=== PATIENT | female | born 1980 | race Caucasian/White ===

== ENCOUNTER → 2023-11-13 | Outpatient (CLI) | payer BC, SELFPAY ==
[2023-11-13 12:11] LABS: Absolute Lymphocyte Count 1.35 X10^3/uL (0.83-4.51); Absolute Neutrophil Count 3.2 X10^3/uL (2.0-7.7); Basophil# 0.04 X10^3/uL; Basophil% 0.8 % (0-1); Eosinophil# 0.06 X10^3/uL; Eosinophils% 1.2 % (0-5); Hematocrit 35.5 % (37-47); Hemoglobin 10.9 g/dL (12.0-15.0); Lymphocyte # 1.35 X10^3/ul (0.83-4.51); Lymphocyte % 26.9 % (19-41); Mean Corp Hgb Conc 30.7 g/dL (32-36); Mean Corpuscular Hgb 22.3 pg (27.0-32.0); Mean Corpuscular Volume 72.7 fL (81-99); Mean Platelet Vol. 8.8 fl (6.2-12.0); Monocyte# 0.38 X10^3/uL; Monocyte% 7.6 % (0-10); NRBC Flagged by Analyzer 0 % (0-5); Neutrophil # 3.18 X10^3/uL (2.7-7.7); Neutrophil % 63.3 % (47-70); Platelet Count 346 K/mm3 (150-450); RBC Distribution Width CV 18.7 % (11.6-14.6); RBC Distribution Width SD 48.4 fl (35.1-43.9); Red Blood Count 4.88 M/mm3 (4.2-5.4)
[2023-11-13 12:32] LABS: AST(SGOT) 11 U/L (15-37); Alanine Aminotransfer ALT/SGPT 15 U/L (13-56); Albumin, Serum 3.8 g/dL (3.2-5.0); Alkaline Phosphatase 43 U/L (45-117); Anion Gap 7 (5-15); BUN 11 mg/dL (7-18); BUN/Creat Ratio 15.1 RATIO (10-20); Calcium,Total 9.2 mg/dL (8.5-10.1); Chloride 105 mmol/L (98-107); Cholesterol 224 mg/dL (200); Creatinine, Serum 0.73 mg/dL (0.55-1.02); EST Glomerular Filtration Rate 92 mL/min (>60); Est Glom Filt Rate - Afr Amer 111 mL/min (>60); Globulin 3.7 g/dL (2.2-4.2); Glucose 95 mg/dL (74-106); High Density Lipoprotein 82 mg/dL; Potassium 3.9 mmol/L (3.5-5.1); Protein, Total 7.5 g/dL (6.4-8.2); Sodium Level 135 mmol/L (136-145); Triglycerides 100 mg/dL; Very Low Density Lipoprotein 20 mg/dL (5-40)
== END | disposition home or self-care (01) ==
LOC: MTLAB 10:39
PROVIDERS: PCP Nurse Practitioner Family; Referring Provider Nurse Practitioner Family; Visit Provider Nurse Practitioner Family
DX: Z01.818 Encounter for other preprocedural examination (principal)
CPT/HCPCS: 36415; 80053; 80061; 85025

== ENCOUNTER 2023-11-30 06:00 | Day surgery (SDC) | payer SELFPAY ==
[2023-11-30] VITALS (11 sets, daily range): BP systolic 86–115; BP diastolic 52–71; PULSE 74–106; RESP 16–18; TEMP 36.3–37.6; O2SAT 95–100; BMI 27.1
[2023-11-30 06:19] LABS: Internal QC Validated? YES +Cl - CLEAR BKGD; Pregnancy, Urine Negative Negative
--- NOTE | 2023-11-30 07:11 | PCM.PRE.AN2 ---
ASA Classification* ASA Classification ASA Classification: 2 Assessment & Plan Anesthesia* Anesthesia Assessment Anesthesia Assessment: Discussed sedation and/or anesthesia options, risks, benefits, and alternatives with patient/parents/legal guardian/POA. Questions invited. The patient/parents/legal guardian/POA seems to understand and agrees to proceed with anesthesia plan. Reviewed the physical assessment, medical history, allergy history and patient home medications list prior to surgery/procedure/anesthetic and documented any changes. Performed airway and anesthesia risk assessments. Anesthesia Type Anesthesia Type: General (see written pre anesthesia record for full assessment) Anesthesia Focused Assessment* Temperature: 98.8 F Pulse Rate: 74 Blood Pressure: 115/71 Respiratory Rate: 16 Pulse Ox: 100 Airway Assessment Mouth opens: >3 cm Mallampati Score: II Focused Labs Anesthesia Preop lab: CBC WBC 5.0 K/mm3 (4.4-11.0) 11/13/23 10:47 RBC 4.88 M/mm3 (4.2-5.4) 11/13/23 10:47 Hgb 10.9 g/dL (12.0-15.0) L 11/13/23 10:47 Hct 35.5 % (37-47) L 11/13/23 10:47 Plt Count 346 K/mm3 (150-450) 11/13/23 10:47 CHEMISTRY Potassium 3.9 mmol/L (3.5-5.1) 11/13/23 10:47 Sodium 135 mmol/L (136-145) L 11/13/23 10:47 BUN 11 mg/dL (7-18) 11/13/23 10:47 Creatinine 0.73 mg/dL (0.55-1.02) 11/13/23 10:47 Glucose 95 mg/dL (74-106) 11/13/23 10:47 COAG Urine Test Negative Negative 11/30/23 06:10 Pre-Assessment Diagnosis/Proposed Procedure Planned Operative Procedure(s): BILAT BREAST REDUCTION Anesthesia History Anesthesia History - senior stock plan administrator: Anesthesia History - senior stock plan administrator Hx Hospitalization No 11/16/23 10:09 Any Problems With Anesthesia Yes: N,V 11/16/23 10:09 Cholinesterase deficiency No 11/16/23 10:09 You/Your Family Experience No 11/16/23 10:09 fever (hyperthermia) with Relationship Recent Exposure to Contagious No 11/30/23 06:30 Disease Does patient have nerve No 11/16/23 10:09 stimulator Patient instructed to have device shut off --Does patient have Pacemaker No 11/30/23 06:30 or ICD? When Was Last Pacemaker Check QUESTION #4 FULL TEXT: You/Your Family Experience fever (hyperthermia) with Anesthesia Last Oral Intake Last Oral intake: Last Oral Intake NPO since 19:30 11/30/23 06:30 Meds taken in AM with sips of water? Meds patient instructed to take am of surgery PONV PONV - senior stock plan administrator: PONV - senior stock plan administrator Female Yes 11/16/23 10:09 HX of Motion Sickness Yes 11/16/23 10:09 HX of N/V After Surgery Yes 11/16/23 10:09 Non-Smoker Yes 11/16/23 10:09 Duration of Surgery greater Yes 11/16/23 10:09 than 60 minutes Number of Risk Factors 5 11/16/23 10:09 PONV Score Severe Risk 11/16/23 10:09 Height & Weight Height & Weight: Anesthesia: Height & Weight Height 5 ft 11/30/23 06:30 Weight: 63 kg 11/30/23 06:30 Body Mass Index (BMI) 27.1 11/30/23 06:30 Respiratory Assessment Respiratory Assessment - senior stock plan administrator: Respiratory Tract Infection Hx - senior stock plan administrator Hx Respiratory Tract Infection No 11/16/23 10:09 STOP Sleep Apnea STOP Sleep Apnea - senior stock plan administrator: STOP Sleep Apnea - senior stock plan administrator Hx Hypertension No 11/16/23 10:09 Hx Sleep Apnea No 11/16/23 10:09 CPAP BIPAP Do you snore loudly (louder No 11/16/23 10:09 than talking or can be heard Do you often feel tired/ No 11/16/23 10:09 fatigued/ sleepy during daytime? Has anyone observed you stop No 11/16/23 10:09 breathing during sleep? STOP Results Negative 11/16/23 10:09 QUESTION #5 FULL TEXT : Do you snore loudly (louder than talking or can be heard through closed doors)? Tobacco Use History Tobacco Use History - senior stock plan administrator: Tobacco Use History - senior stock plan administrator Tobacco Use Smoking Status Never smoker 11/16/23 10:09 Hx Tobacco Use No 11/16/23 10:09 Years Smoking Packs Smoked per Day Smoking Cessation Date was within the last 15 years Hx Smoking Cessation Date Hx Smoking Cessation Counseling Hematologic Medial History Hematologic Hx - senior stock plan administrator: Hematologic Medical Hx - heating mechanic Hx of Blood Transfusion No 11/16/23 10:09 Hx of Transfusion in last 3 No 11/16/23 10:09 Months Date of Last Transfusion (if within last 3 months) Ever experience any problems No 11/16/23 10:09 with transfusion(s)? Specify any problems Hx of Preganancy in last 3 No 11/16/23 10:09 Months Nurse Filling Out Transfusion DSCHRIBER 11/16/23 10:09 & Questions: Date: 11/16/23 11/16/23 10:09 Time: 10:10 11/16/23 10:09 Patient unable to answer at this time (ie. confused, unrespo /Reproduction History /Reproductive History - senior stock plan administrator: /Reproductive Hx- senior stock plan administrator Hx Now No 11/16/23 10:09 Gestational Age (in weeks): EDC: Hx Hx Para Hx Section SAB No 11/16/23 10:09 Active Medications Active Medications: Current Medications Generic Name Dose Route Start Last Admin Trade Name Freq PRN Reason Stop Dose Admin Cefazolin Sodium 2 gm/ Sodium 110 mls @ 150 mls/hr 11/30/23 07:30 Chloride IV 11/30/23 08:13 PREOP ONE [facility] Medical History Low iron Back pain Non-smoker Home Medications ?Medication ?Instructions ?Recorded ?Last Taken ?Type d-mannose 500 mg capsule 500 mg PO DAILY 11/16/23 11/29/23 History dihydroberberine 200 mg capsule 200 mg PO DAILY 11/16/23 11/29/23 History (Berberine ES-5) multivitamin-folic acid 400 2 tab PO DAILY 11/16/23 11/29/23 History mcg-biotin 2,000 mcg tablet (Qptl-Nqab-Ojwff (datqkonx-oetfw-mhjlak)) cephalexin 500 mg capsule 500 mg PO BID #14 caps 11/20/23 11/29/23 20:00 Rx Allergy/AdvReac Type Severity Reaction Status Date / Time No Known Allergies Allergy Verified 11/30/23 06:26 Family History Grandmother Cancer lymphoma Heart disease Mother Anxiety Depression High cholesterol Grandfather Cancer kidney cancer Heart disease Daughter Anxiety Depression Seizures Psychiatric care Surgical History History of endometrial ablation History of dilation and curettage History of tonsillectomy Social History Smoking Status: Never smoker how long ago did patient quit smoking: as a teen alcohol intake: never substance use type: does not use additional social history: pt denies vaping, denies marijuana use, denies edibles, used aspiring and ibuprofen as needed. Review of Systems (Anesthesia) ROS Narrative System reviewed and no additional complaints, except as documented.
--- NOTE | 2023-11-30 07:13 | PCM.HP.BLA ---
History and Physical Date of Admission: 11/30/23 The patient is examined and there are no changes from the history and physical dated 11/13/2023. The patient presents for breast reduction surgery. No guarantees as to the final size is made nor the final appearance which is dictated by her anatomy. She does have asymmetry and she was reminded that she may continue to have some degree of asymmetry postoperatively. Informed consent was obtained and she wishes to proceed with bilateral breast reduction. Assessment & Plan Assessment/Plan (1) Breast hypertrophy: (2) Chronic shoulder pain: (3) Chronic back pain: PLAN: Plan Patient for bilateral breast reduction.
[2023-11-30] MEDS: Lactated Ringers 1,000 ML 15 ML IV (07:22)
--- NOTE | 2023-11-30 07:30 | BR_PTH ---
PATIENT: SURY SMITH [place] [facility] [id number] AGE/SX: 43/F ROOM: RE11/30/[address]: Dr. Gina Cruz MD : 1980 BED: DIS: 11/30/2023 SPEC #: [id number] RECD: 11/30/23 13:14 STATUS: YANN GARCIA #: [id number] JT: 11/30/23 07:[address]: Gina Cruz DEPT: SURGICAL PATHOLOGY RECD BY: Malissa Ahn ENTERED: 11/30/23 13:34 SP TYPE: MAMOPLASTY OTHR DR: Marni Scott, BOILER OR ENGINE OPERATOR-C Tissues: A - Right breast, NOS B - Left breast, NOS Procedures: Surgery Specimen Level IV HEADER OPERATION: Bilateral breast reduction PRE-OP DIAGNOSIS: Breast hypertrophy, chronic shoulder pain, chronic back pain TISSUE SUBMITTED: A- Right breast, B- Left breast MICROSCOPIC DIAGNOSIS A. Right breast reduction, mammoplasty: Mild duct ectasia. 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 Skin with no pathologic change. B. Left breast reduction, mammoplasty: Mild fibrocystic change. 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 Skin with no pathologic change. AM. 12/04/2023 MICROSCOPIC DESCRIPTION Slides are reviewed. GROSS DESCRIPTION A - Received in fixative is one container labeled with the patient's name and designated Right breast tissue. The specimen consists of multiple pieces of fibroadipose tissue with a few of the pieces showing voss-white skin, weighing in aggregate 230 gm and measuring in aggregate 15.0 x 15.0 x 4.5 cm. No skin lesion is identified. Sections reveal yellow adipose cut surfaces mixed with scant fibrous areas. No mass lesion is identified. Jewelry Maker sections are submitted in six cassettes. Cassette 1 contains the skin piece. B - Received in fixative is one container labeled with the patient's name and designated Left breast tissue. The specimen consists of multiple pieces of fibroadipose tissue with a few of the pieces showing voss-white skin, weighing in aggregate 383 gm and measuring in aggregate 20.0 x 16.0 x 6.0 cm. No skin lesion is identified. Sections reveal yellow adipose cut surfaces mixed with scant fibrous areas. No mass lesion is identified. Jewelry Maker sections are submitted in six cassettes. Cassette 1 contains the skin piece. / SJ: 12/03/2023 TC:5 CPT:88501q8
[2023-11-30] MEDS: Cefazolin 2 GM in 0.9% Normal Saline (100mL Bag) 100 ML IV (07:45)
[2023-11-30] MEDS: Methylene Blue 1% 100 MG/10 ML VIAL (08:15)
[2023-11-30] MEDS: Gentamicin 80 MG/2 ML Vial (08:15)
[2023-11-30] MEDS: EPINEPHrine Nasal 0.1% 30 ML Bottle OPERA.SITE (08:15)
[2023-11-30] MEDS: Bupivacaine 0.25% 30 ML Vial (12:40)
--- NOTE | 2023-11-30 12:56 | EX.PCM.DISCH ---
Discharge Instructions Dressing / Incision Additional Dressing/Incision Instructions:: Follow the instructions given in the office. Keep your head elevated in a recliner position. Take the antibiotic as directed starting tomorrow. Follow Up Care Please Follow Up With: Gina Cruz MD When: In 1 week Test Results: Test results from this visit will be discussed in further detail at your follow-up appointment, if applicable. Discharge Plan Admission Attending Provider: Gina Cruz Primary Care Provider: Marni Scott Instructions Print Language: Croatian Discharge Orders/Prescriptions Prescriptions: No Action cephalexin 500 mg capsule 500 mg PO BID Qty: 14 0RF Nuru-Shnn-Hyive (fh-LN-qjgeax) 400-2,000 mcg tablet 2 tab PO DAILY d-mannose 500 mg capsule 500 mg PO DAILY Berberine ES-5 200 mg capsule 200 mg PO DAILY Disposition Disposition (needs filled in before D/C Order can be placed): Home, Self Care
--- NOTE | 2023-11-30 12:58 | PCM.OPRPT ---
Problems Associated Problem List Diagnoses (1) Chronic shoulder pain: (2) Chronic back pain: (3) Breast hypertrophy: Report of Operation Date of Procedure: 11/30/23 Pre-Operative Diagnosis: Bilateral mammary hypertrophy Breast asymmetry Cosmetic surgery Post-Operative Diagnosis: Same Surgery/Procedure Performed:: Bilateral breast reduction Surgeon: Gina Cruz slasher hand: Laney Obrien Specimen's removed: Breast tissue Drains: None Estimated Blood Loss (mL): <50cc Description of Procedure: The patient presents today for elective breast reduction. The procedure been thoroughly reviewed with the patient including the expected pre-, intra-, postoperative course. An informed consent is obtained. No guarantees were made as to the final size. Additionally, she has asymmetry and is aware that she may still have asymmetry following the procedure. She wishes to proceed with surgery. The patient is marked in the preop holding area prior to surgery. The patient is brought to the operating room and placed under general anesthesia in the supine position. Care is taken to pad all pressure points, apply sequential compression stockings, Pope catheter, and a warming blanket. The breast and chest are prepped and draped in the usual sterile fashion. We initially began with incising all the incisions. Following this, the pedicle is de-epithelialized. The nipple areola is left intact. The medial and lateral inferior aspects of the breast are removed using argon coagulation. The upper flap is then from the pedicle maintaining the upper flap at least 2 cm in thickness. The pedicle is then trimmed in order to allow to comfortably fit beneath the upper flap. The wound is irrigated with antibiotic solution and checked for hemostasis which is controlled with cautery. The breast is then tacked together with skin clips and silk suture. With a satisfactory size and shape noted, the wounds are closed. A few Vicryl sutures are initially placed in the subcutaneous tissue for alignment. Following this, a STRATAFIX suture is used to approximate skin edges in 3 layers. Approximately 4 cm above the inframammary crease, the nipple areola is brought out and tacked in place with interrupted nylon suture. All skin edges other than approximated with a running subcuticular strata fix suture. The identical procedure was performed on the opposite side. Care is taken to attempt to achieve symmetry. The incisions are then injected with quarter percent Marcaine. Sterile dressing using Xeroform and fluff gauze is placed and she is placed in a surgery bra. She tolerated the procedure well was taken the recovery area in an awake and stable condition. Needle and sponge counts are correct. Complications None Admit VTE Documentation VTE Mechan Device Prophylaxis: SCD's
--- NOTE | 2023-11-30 13:10 | PCM.POST.ANE ---
Anesthesia: Postop Eval I Current Vital Signs Temperature: 97.4 F Pulse Rate: 95 Blood Pressure: 91/52 Respiratory Rate: 16 Pulse Ox: 95 Oxygen Delivery Method: Room Air Assessment Airway patent: Yes Spontaneous unlabored respirations: Yes Mental status: Awake nausea: No Vomiting: No Anesthesia Complication: No Fluid Hydration Crystalloid volume administer (ml): 1,800 Total IV fluid infused: 1,800 Progress Note Anesthesia document: Postop Eval 1 completed: Yes
--- NOTE | 2023-11-30 14:16 | POSTOPAN2_ITS ---
Anesthesia Postop Eval I Sum Postop Eval Completion status Anesthesia document: Postop Eval 1 completed: Yes Anesthesia Postop Eval I Summary Anesthesia Postop Eval I Summary: Anesthesia Postop Eval I: Assessment Summary Airway patent Yes 11/30/23 13:12 [employer] OWNER OPERATOR.JDEF Spontaneous unlabored Yes 11/30/23 13:12 [employer] OWNER OPERATOR.JDEF respirations Mental status Awake 11/30/23 13:12 [employer] OWNER OPERATOR.JDEF nausea No 11/30/23 13:12 [employer] OWNER OPERATOR.JDEF Vomiting No 11/30/23 13:12 [employer] OWNER OPERATOR.JDEF Anesthesia Postop Eval I: Fluid Summary Crystalloid volume administer 1,800 11/30/23 13:12 [employer] OWNER OPERATOR.JDEF (ml) Colloids volume administered ( ml) Blood Product volume administered (ml) Total IV fluid infused 1,800 11/30/23 13:12 LINE HAUL OWNER OPERATOR.JDEF Anesthesia Postop Eval I: Summary Notes Anesthesia Complication No 11/30/23 13:12 LINE HAUL OWNER OPERATOR.JDEF Anesthesia Complication Comment: Post-operative progress note Anesthesia: Postop Eval II Evaluation Mental status: Awake Pain Level: 0 nausea: No Vomiting: No
--- NOTE | 2023-11-30 14:16 | PCM.POSTANE2 ---
Anesthesia Postop Eval I Sum Postop Eval Completion status Anesthesia document: Postop Eval 1 completed: Yes Anesthesia Postop Eval I Summary Anesthesia Postop Eval I Summary: Anesthesia Postop Eval I: Assessment Summary Airway patent Yes 11/30/23 13:12 [employer].JDEF Spontaneous unlabored Yes 11/30/23 13:12 [employer].JDEF respirations Mental status Awake 11/30/23 13:12 [employer].JDEF nausea No 11/30/23 13:12 [employer].JDEF Vomiting No 11/30/23 13:12 [employer].JDEF Anesthesia Postop Eval I: Fluid Summary Crystalloid volume administer 1,800 11/30/23 13:12 [employer].JDEF (ml) Colloids volume administered ( ml) Blood Product volume administered (ml) Total IV fluid infused 1,800 11/30/23 13:12 [employer]JDEF Anesthesia Postop Eval I: Summary Notes Anesthesia Complication No 11/30/23 13:12 [employer].JDEF Anesthesia Complication Comment: Post-operative progress note Anesthesia: Postop Eval II Evaluation Mental status: Awake Pain Level: 0 nausea: No Vomiting: No
[2023-11-30] MEDS: Acetaminophen 500 MG Tablet 1000 MG PO (15:04)
== END 2023-11-30 16:40 | disposition home or self-care (01) ==
LOC: SDC 06:02 → AC 06:03
PROVIDERS: Anesthesiology; PCP Nurse Practitioner Family; Referring Provider Plastic Surgery; Visit Provider Plastic Surgery
PROC: 0H0U0ZZ Alteration of Left Breast, Open Approach (ICD-10-PCS; CPT 19318; principal; 2023-11-30 07:15)
DX: N62 Hypertrophy of breast (principal); M54.9 Dorsalgia, unspecified; G89.29 Other chronic pain; M25.511 Pain in right shoulder; M25.512 Pain in left shoulder; N60.41 Mammary duct ectasia of right breast
CPT/HCPCS: 19318; 00402; 81025; 88305; J7120; A4216; J2405